=== PATIENT | male | born 1995 | race Caucasian/White ===

== ENCOUNTER → 2018-11-21 17:34 | Outpatient (CLI) | payer BC, SELFPAY ==
--- NOTE | 2018-11-21 17:40 | XR_ITS ---
PROCEDURE: XR SHOULDER RT MIN 2V CLINICAL INDICATION: RIGHT SHOULDER PAIN COMPARISON: No exams were available for comparison FINDINGS: Bone density, joint spaces and alignment are normal. There is no acute fracture. There are benign calcified granulomas in the right lung. IMPRESSION: No acute process. Dictated by: Rudy Lundberg 11/22/2018 08:59 Electronically signed by Rudy Lundberg in [facility] 11/22/2018 08:59
== END ==
PROVIDERS: Visit Provider Internal Medicine Adolescent Medicine
DX: M25.511 Pain in right shoulder (principal)
CPT/HCPCS: 73030

== ENCOUNTER 2019-03-21 08:00 | Outpatient (RCR) | payer BC, SELFPAY | END 2019-04-21 11:00 | disposition home or self-care (01) | LOC: PT.CARL 08:00 | PROVIDERS: Visit Provider Orthopaedic Surgery | DX: S72.91XA Unspecified fracture of right femur, initial encounter for closed fracture (principal) | CPT/HCPCS: 97010; 97014; 97110; 97112; 97116; 97163; 97164; G0283 ==

== ENCOUNTER 2020-03-06 15:34 | Emergency (ER) | payer OTHER, SELFPAY ==
[2020-03-06 15:35] VITALS: BP 132/91; PULSE 76; RESP 20; TEMP 37.1; O2SAT 98; BMI 22.6
--- NOTE | 2020-03-06 15:39 | XR_ITS ---
PROCEDURE: XR NASAL BONES MIN 3V CLINICAL INDICATION: POSSIBLE BROKEN NOSE Pain COMPARISON: No exams were available for comparison FINDINGS: No fracture or dislocation. No lytic or blastic change. There is normal mineralization. No sinus air-fluid level. Other findings:None. IMPRESSION: Negative nasal bones Dictated by: Ashwin Pink MD 03/06/2020 16:01 Ashwin Pink MD in [facility] 03/06/2020 16:01
--- NOTE | 2020-03-06 16:05 | [facility].EDUTC ---
[facility] [place] Disposition Clinical Impression: Contusion of nose Qualifiers: Encounter type: initial encounter Qualified Code(s): S00.33XA - Contusion of nose, initial encounter Disposition: Home, Self-Care Condition on Discharge: Good Instructions: Contusion Additional Instructions: Ice to area every couple of house will help with swelling and bruising Your nose may be sore and bruised tomorrow Follow up with your Family Doctor or ENT if any worsening of symptoms Return if needed Straight to ER if any life threatening symptoms Referrals: Jorge Hillman MD [Primary Care Provider] - As needed Baron Wyman MD [Staff Physician] - Milena Salazar MD [Consulting Physician] - Time of Disposition: 16:14 Medical Decision Making - Ander Inquiry Pt receiving controlled substance: No Ander was queried for this patient: No Vital Signs: 03/06/20 15:35 03/06/20 16:29 Temperature 98.7 F 98.7 F Temperature Source Oral Oral Pulse Rate 76 Pulse Rate [Right] 76 Respiratory Rate 20 20 Blood Pressure 132/91 H Blood Pressure [Right Arm] 132/91 H Blood Pressure Mean [Right Arm] 104 02 Sat by Pulse Oximetry 98 - Radiology Data #1 Image(s): Nasal Bones Image Reviewed: Yes I have reviewed radiologist's interpretation Preliminary Findings: Normal/NAD [facility] [place] HPI - General Stated complaint: AO 03/06/20 1300 possible broken nose Time Seen by Provider: 03/06/20 16:05 Description of Symptoms (Recalled from Triage Doc. by RN): pt was triming a tree and a branch hit him in face HEENT Symptoms (Recalled from RN notes): No Resp Symptoms (Recalled from RN notes): No Skin Symptoms (Recalled from RN notes): No MS Symptoms (Recalled from RN notes): Yes Functional Status (Recalled from RN notes): wnl - History of Present Illness Provider Complaint: Patient states that he was trimming a tree when a small branch flew back and hit him in the nose States that his nose immediately started bleeding and he has been having some swelling and bruising and worried that he may have broken his nose so he come in to get checked Denies LOC - Related Data Allergies Allergy/AdvReac Type Severity Reaction Status Date / Time No Known Allergies Allergy Verified 03/06/20 15:52 - Worker's Comp Is this a Worker's Comp case?: No Is this an [facility] Worker's Comp?: No Is this a [place] Worker's Comp?: No [facility] History - Hepatitis A Screen Drug use history?: No High risk sexual behaviors?: No History of sexually transmitted infection?: No Currently employed?: No Childcare worker?: No Do you have indoor plumbing?: Yes Do you have electricity?: Yes Attestation statement:: This patient has been screened for Hepatitis A risk factors. I have reviewed the patient's past medical history: Yes ROS Obtained: Yes All systems reviewed & no additional complaints, Yes Systems reviewed as appropriate & no additional complaints - ENT Ears, Nose, Mouth, and Throat: Reports nose pain Physical Exam - General General appearance: alert, in no apparent distress - Expanded Head Exam Head exam physical: Absent: raccoon eyes, Field's sign, CSF rhinorrhea 1 - bruising and swelling noted no active bleeding small abrasion noted on tip of nose - Eye Eye exam: Present: normal appearance, PERRL, EOMI - Expanded ENT Exam Nose exam: Present: abrasion, other (Bruising and mild swelling noted after patient was hit in the nose by tree branch Denies any other injury) - Respiratory Respiratory exam: Present: normal lung sounds bilaterally. Absent: respiratory distress - Cardiovascular Cardiovascular exam: Present: regular rate, normal rhythm. Absent: JVD - Abdominal Exam Abdominal exam: Present: soft, normal bowel sounds. Absent: distention, tenderness, guarding - Neurological Exam Neurological exam: Present: alert, oriented X3
[2020-03-06 16:29] VITALS: BP 132/91; PULSE 76; RESP 20; TEMP 37.1; O2SAT 98
== END 2020-03-06 16:30 | disposition home or self-care (01) ==
PROVIDERS: Emergency Provider Nurse Practitioner; PCP Internal Medicine Adolescent Medicine
DX: S00.33XA Contusion of nose, initial encounter (principal); W22.8XXA Striking against or struck by other objects, initial encounter; Y92.89 Other specified places as the place of occurrence of the external cause
CPT/HCPCS: 70160; 99202; G0463

== ENCOUNTER → 2021-03-04 11:24 | Outpatient (CLI) | payer OTHER, SELFPAY | PROVIDERS: Visit Provider Nurse Practitioner | DX: U07.1 COVID-19 (principal) | CPT/HCPCS: C9803; U0003; U0005 ==

== ENCOUNTER 2023-08-31 21:31 | Emergency (ER) | payer OTHER, SELFPAY ==
[2023-08-31 21:32] VITALS: BP 143/96; PULSE 79; RESP 18; TEMP 37.2; O2SAT 98; BMI 24.3
--- NOTE | 2023-08-31 21:52 | XR_ITS ---
PROCEDURE INFORMATION: Exam: XR Right Tibia and Fibula Exam date and time: 08/31/2023 9:52 PM Age: 28 years old Clinical indication: Pain; Lower leg; Right; Additional info: Injury TECHNIQUE: Imaging protocol: Radiologic exam of the right tibia and fibula. Views: 2 views. COMPARISON: No relevant prior studies available. FINDINGS: Bones/joints: Nondisplaced transverse fracture lateral malleolus. Minimally displaced vertical fracture medial malleolus. Postsurgical changes of distal femur. No dislocation. Soft tissues: Soft tissue swelling about ankle. IMPRESSION: Distal tibial and fibular fractures.
--- NOTE | 2023-08-31 21:52 | XR_ITS ---
PROCEDURE INFORMATION: Exam: XR Right Ankle Exam date and time: 08/31/2023 9:50 PM Age: 28 years old Clinical indication: Pain; Ankle; Right; Additional info: Injury TECHNIQUE: Imaging protocol: Radiologic exam of the right ankle. Views: 3 or more views. COMPARISON: No relevant prior studies available. FINDINGS: Bones/joints: Nondisplaced transverse fracture lateral malleolus. Minimally displaced vertical fracture medial malleolus. No dislocation. Small joint effusion. Soft tissues: Soft tissue swelling. IMPRESSION: Distal tibial and fibular fractures.
[2023-08-31] MEDS: ONDANSETRON 4MG/2ML VIAL 4 MG IV (21:55)
[2023-08-31] MEDS: MORPHINE 4MG/ML SYRINGE 4 MG IV (21:55)
--- NOTE | 2023-08-31 22:04 | ED_ITS ---
Discharge Plan Disposition Patient Disposition: Home, Self-Care Prescriptions Prescriptions: New oxycodone 5 mg tablet 5 mg PO Q8H PRN (Reason: pain (scale score 7-10)) Qty: 10 0RF No Action ketoconazole 2 % cream 1 applic topical BID Qty: 30 2RF betamethasone, augmented 0.05 % cream 1 applic topical DAILY PRN (Reason: rash) Qty: 15 3RF Referrals Follow up/Referrals: Adrián Mortensen MD [Primary Care Provider] - See instructions Ben Gresham DO [Staff Physician] - See instructions Activity Restrictions/Add. Instructions Additional Instructions/Restrictions: At this time it was felt you are safe to be discharged home. If new or worsening symptoms please do not hesitate to return the emergency department. Please take your medications as prescribed. Take oxycodone only after you have taken 1000 mg of Tylenol and 800 mg of ibuprofen. If you begin to not feel your foot, it swells to the point where it is cutting off blood flow to the foot as I showed you, or any severe worsening pain that is not responsive to your medications please present here for continued evaluation. Otherwise call Dr. Gresham and make an appointment as soon as you are able. Do not bear weight at all on your affected leg, rest, ice, compression, elevation. Clinical Impressions Clinical Impression: Bimalleolar ankle fracture Discharge ED Provider: Jarad Medina General Adult HPI General Chief complaint: Extremity Injury, Lower Stated complaint: [id number] RT ankle inj Time Seen by Provider: 08/31/23 21:33 Mode of Arrival: Wheelchair Limitations: No Limitations Description of Symptoms (Recalled from ER Triage Doc. by RN): Pt to ED via wheelchair with c/o injury to right ankle. pt reports 200lb steel beam landed on right ankle History of Present Illness HPI narrative: Patient is a 28-year-old male with no pertinent past medical history presents emergency department for trauma sustained to his ankle. Patient had a 200 pound piece of steel while working on a tractor fall on his right ankle, no other traumatic injury sustained. He presents here for continued evaluation. Related Data Previous Rx's Medication Instructions Recorded ketoconazole 2 % topical cream 1 applic topical BID #30 grams 10/07/22 betamethasone, augmented 0.05 % 1 applic topical DAILY PRN rash 10/14/22 topical cream #15 grams oxycodone 5 mg tablet 5 mg PO Q8H PRN pain (scale score 08/31/23 7-10) #10 tabs Allergies Allergy/AdvReac Type Severity Reaction Status Date / Time No Known Allergies Allergy Verified 10/07/22 12:03 [facility] Disclaimer: The information contained in this section may have been updated after the patient was seen, as this information can be updated by other users. Medical History History of femur fracture No significant family history Surgical History No significant past surgical history Social History Smoking Status: Never smoker second hand exposure: No alcohol intake: current substance use type: denies use current occupational status: employed Travel in the last 8 weeks: None household members: children housing: house lives independently: No marital status: single ROS Obtained: Yes Systems reviewed as appropriate & no additional complaints except as documented Physical Exam General General appearance: alert and in no apparent distress Head Head exam: atraumatic and normocephalic Eye Eye exam: Present PERRL and EOMI ENT ENT exam: Present mucous membranes moist Neck Neck exam: Present normal inspection Chest Chest inspection: Present normal inspection and symmetric chest wall rise Respiratory Respiratory exam: Absent respiratory distress Cardiovascular Cardiovascular exam: Present regular rate and normal rhythm Abdominal Exam Abdominal exam: Present soft Extremities Exam Extremities exam: Present other (Severe swelling right ankle, tenderness right ankle, distally neurovascular intact, palpable dorsal pedal pulse.) Neurological Exam Neurological exam: Present alert Psychiatric Psychiatric exam: Present normal affect Skin Skin exam: Present warm and dry Medical Decision Making Ander Inquiry Pt receiving controlled substance: No Vital Signs: 08/31/23 21:32 Temperature 98.9 F Temperature Source Oral Pulse Rate [Left Radial] 79 Respiratory Rate 18 Blood Pressure [Right Arm] 143/96 H Blood Pressure Mean [Right Arm] 111 Blood Pressure Source [Right Arm] Automatic Cuff Blood Pressure Position [Right Arm] Sitting 02 Sat by Pulse Oximetry 98 Oxygen Delivery Method Room Air Lab Data Lab Results 08/31/23 21:45: WBC 6.8, RBC 4.85, Hgb 15.9, Hct 47.0, MCV 97.0 H, MCH 32.7 H, MCHC 33.7, RDW 13.6, Plt Count 230, MPV 8.5, Neut % (Auto) 53.8, Lymph % (Auto) 31.1, Lyon % (Auto) 4.2, Eos % (Auto) 9.2, Baso % (Auto) 1.6, Neut # (Auto) 3.7, Lymph # (Auto) 2.1, Lyon # (Auto) 0.3, Eos # (Auto) 0.6 H, Baso # (Auto) 0.1, Sodium 140, Potassium 4.0, Chloride 102, Carbon Dioxide 28, Anion Gap 14.0, BUN 11, Creatinine 1.00, Estimated Creat Clear 114, Estimated GFR 90, Est GFR ( Amer) 108, Glucose 117 H, Calcium 9.1 08/31/23 21:45 08/31/23 21:45 Orders (Tests/Meds): ED MEDICATIONS Discontinued Medications Generic Name Dose Route Start Last Admin Trade Name Hector PRN Reason Stop Dose Admin Acetaminophen 1,000 mg 08/31/23 21:57 08/31/23 22:12 Acetaminophen 500mg Tab PO 08/31/23 21:58 1,000 mg ONCE ONE Administration Ketorolac Tromethamine 30 mg 08/31/23 21:57 08/31/23 22:12 Ketorolac 30mg/Ml Vial IV 08/31/23 21:58 30 mg ONCE ONE Administration Morphine Sulfate 4 mg 08/31/23 21:50 08/31/23 21:55 Morphine 4mg/Ml Syringe IV 08/31/23 21:51 4 mg ONCE ONE Administration Ondansetron HCl 4 mg 08/31/23 21:48 08/31/23 21:55 Ondansetron 4mg/2ml Vial IV 08/31/23 21:49 4 mg ONCE ONE Administration Oxycodone HCl 5 mg 08/31/23 22:43 08/31/23 22:45 Oxycodone 5mg Immediate Release Tablet PO 08/31/23 22:44 5 mg ONCE ONE Administration ORDERS Category Date Time Status Ankle XR -Right minimum 3 Views [XR ankle RT min 3V] Exams 08/31/23 21:52 Completed Stat XR tibia fibula RT 2V Stat Exams 08/31/23 21:52 Completed BMP [Basic Metabolic Panel] Stat Lab 08/31/23 21:45 Completed CBC w/Auto Diff [Complete Blood Count Auto Diff] Stat Lab 08/31/23 21:45 Completed Medical Decision Narrative: In summary patient is a 28-year-old male with past medical history described above who presents emergency department for evaluation of traumatic injury sustained being struck by a piece of steel. Patient is hemodynamically stable nontoxic-appearing upon arrival, afebrile. Differential includes fracture, sprain, contusion, among others. Workup will be conducted with plain film x- ray, hematologic labs to be obtained. Initial inventions include multimodal pain control. Initial x-ray informally interpreted by me, both bone fracture of the distal right leg. No significant displacement. Formal read shows distal tib-fib bimalleolar fracture. Pulses, distal sensation, distal capillary refill preserved. Case was discussed with Dr. Gresham, ankle compartment syndrome will be unlikely to develop. He will be placed in posterior short slabs splint, strict nonweightbearing and will follow-up in his clinic for surgical intervention. Patient be discharged with a course of oxycodone was given multiple return precautions and verbalized understanding. Procedure: Procedure performed was posterior short slab splint. Procedure performed by splint tech under my supervision. Ortho-Glass was fashioned in a posterior short slab and was wrapped in an Ritchie wrap. Distal capillary refill and recheck preserved. Patient tolerated the procedure well. There were no immediate complications. Critical Care Critical Care Time Critical Care Time: No
[2023-08-31 22:09] LABS: Basophils # 0.1 K/mm3 (0-0.2); Basophils % 1.6 % (0.1-2.0); Eosinophils # 0.6 K/mm3 (0.0-0.4); Eosinophils % 9.2 % (0.1-12.0); Hemoglobin 15.9 g/dL (14.1-18.0); Lymphocytes # 2.1 K/mm3 (0.7-4.5); Lymphocytes % 31.1 % (10-50); Mean Corpuscular HGB Conc 33.7 g/dL (31.8-35.4); Mean Corpuscular Hemoglobin 32.7 pg (27.0-31.2); Mean Platelet Volume 8.5 fl (7.4-10.4); Monocytes # 0.3 K/mm3 (0.1-1.0); Monocytes % 4.2 % (1.7-9.3); Neutrophils # 3.7 K/mm3 (1.8-7.8); Neutrophils % 53.8 % (37.0-80.0); Platelet Count 230 K/mm3 (142-424); Red Blood Count 4.85 M/mm3 (4.60-6.20); Red Cell Distribution Width 13.6 % (11.5-17.5); White Blood Count 6.8 K/mm3 (4.8-10.8)
[2023-08-31] MEDS: ACETAMINOPHEN 500MG TAB 1000 MG PO (22:12)
[2023-08-31] MEDS: KETOROLAC 30MG/ML VIAL 30 MG IV (22:12)
[2023-08-31 22:24] LABS: Blood Urea Nitrogen 11 mg/dl (9-20); Calcium 9.1 mg/dl (8.4-10.2); Carbon Dioxide 28 mmol/L (22.0-30.0); Chloride 102 mmol/L (98-107); Creatinine Clearance Estimated 114 mL/min (50-200); Estimated Glomerular Filt Rate 90 ml/min (>60); GFR (African American) 108 ML/MIN (>60); Glucose 117 mg/dl (74-100); Sodium 140 mmol/L (136-145)
[2023-08-31] MEDS: OXYCODONE 5MG IMMEDIATE RELEASE TABLET 5 MG PO (22:45)
[2023-08-31 23:23] VITALS: BP 150/105; PULSE 105; RESP 18; TEMP 36.7; O2SAT 96
[2023-08-31 23:29] VITALS: BP 140/94; PULSE 88; RESP 16; TEMP 36.7; O2SAT 98
== END 2023-08-31 23:30 | disposition home or self-care (01) ==
PROVIDERS: Emergency Provider Emergency Medicine; PCP Family Medicine
DX: S82.64XA Nondisplaced fracture of lateral malleolus of right fibula, initial encounter for closed fracture (principal); S82.51XA Displaced fracture of medial malleolus of right tibia, initial encounter for closed fracture; W20.8XXA Other cause of strike by thrown, projected or falling object, initial encounter; M25.571 Pain in right ankle and joints of right foot
CPT/HCPCS: 29515; 73590; 73610; 80048; 85025; 96374; 96375; 99284; J1885; J2270; J2405

== ENCOUNTER 2023-12-15 08:00 | Outpatient (RCR) | payer OTHER, SELFPAY | END 2024-01-04 16:14 | disposition home or self-care (01) | LOC: PT 08:00 | PROVIDERS: Visit Provider Orthopaedic Surgery Adult Reconstructive Orthopaedic Surgery | DX: M25.571 Pain in right ankle and joints of right foot (principal); M25.671 Stiffness of right ankle, not elsewhere classified; Z98.890 Other specified postprocedural states | CPT/HCPCS: 97014; 97110; 97112; 97116; 97140; 97163; 97164; 97530; G0283 ==